=== PATIENT | male | born 1930 | race Caucasian/White ===

== ENCOUNTER 2016-08-13 18:12 | Emergency (ER) | payer OTHER ==
--- NOTE | 2016-08-13 18:27 | EDPHY ---
H & P HPI/ROS: HPI CHIEF COMPLAINT: Constipation HISTORY OF PRESENT ILLNESS: This patient is a 86-year-old male significant medical history for a subtotal neuralgia, left knee replacement, and intermittent constipation. He does take chronic opioids 1 pill per day in the morning. Thinks he takes hydrocodone per day. He presents emergency room states that he is unsure if he had a bowel movement yesterday cannot recall. Tried to have a bowel movement today was having a hard time. He took 2 bottles of milk of magnesia without any significant movement today. He tells me he has not really had a big meal today did not exercise. He denies any abdominal pain. Denies nausea, vomiting, chest pain or shortness of breath. He is unsure if he had a bowel movement yesterday he normally goes regularly. He is concerned that he may have not had a bowel movement yesterday and did not have 1 today and that he may be constipated. Upon arrival here in emergency room he has no chest pain no abdominal pain no nausea no vomiting. Past Medical History: Occipital neuralgia, left knee replacement, takes chronic opioids 1 pill per day. Past Surgical History: Left knee surgery Social History: Denies daily use of drugs alcohol tobacco products, lives independently Family History: Noncontributory ROS REVIEW OF SYSTEMS: A comprehensive 10 point review of systems is otherwise negative aside from elements mentioned in the history of present illness. Exam Constitutional appears well nontoxic, triage nursing summary reviewed, vital signs reviewed, awake/alert. Eyes normal conjunctivae and sclera, EOMI, PERRLA. HENT normal inspection, atraumatic, moist mucus membranes, no epistaxis, neck supple/ no meningismus, no raccoon eyes. Respiratory clear to auscultation bilaterally, normal breath sounds, no respiratory distress, no wheezing. Cardiovascular rate normal, regular rhythm, no murmur, no edema, distal pulses normal. Gastrointestinal abdomen is completely, there is no distention, no palpable stool mass, soft, non-tender, no rebound, no guarding, normal bowel sounds, no distension, no pulsatile mass. Genitourinary no CVA tenderness. Musculoskeletal no midline vertebral tenderness, full range of motion, no calf swelling, no tenderness of extremities, no meningismus, good pulses, neurovascularly intact. Skin pink, warm, & dry, no rash, skin atraumatic. Neurologic awake, alert and oriented x 3, AAOx3, moves all 4 extremities equally, motor intact, sensory intact, CN II-XII intact, normal cerebellar, normal vision, normal speech. Psychiatric normal mood/affect. Heme/Lymph/Immune no lymphadenopathy. Differential Diagnosis: Includes but is not limited to in a particular order, functional constipation, constipation caused by opioid use, slow transit constipation, bowel obstruction Medical Decision Making: Plan for this patient KUB. If KUB shows normal bowel gas pattern and constipation will place on MiraLax for 2 days. Lots of water per injuries. Exercise and normal meal and he should move his bowels. If he cannot recommend he holds narcotic for the next 2 days. Re-evaluation: 1908: Did re-evaluate the patient. I went over his KUB x-ray with him. He understands help with his constipation. Additionally I did go over these bone lesions needs follow-up. He has no primary care doctor. I will refer him to oncology for follow-up as well as unassigned internal medicine primary care as he has no assigned primary care doctor at this time. He understands he needs these bone lesions followed up. Does not have a history of cancer multiple myeloma, unclear significance at this time. Source: Patient - Medical/Surgical History Hx Asthma: No Hx Chronic Respiratory Disease: No Hx Diabetes: No Hx Cardiac Disease: No Hx Renal Disease: No Hx Cirrhosis: No Hx Alcoholism: No Hx HIV/AIDS: No Hx Splenectomy or Spleen Trauma: No Other PMH: left knee replacement - Social History Smoking Status: Never smoked Constitutional: Initial Vital Signs Temperature (C) 36.6 C 08/13/16 18:30 Heart Rate 114 H 08/13/16 18:30 Respiratory Rate 18 08/13/16 18:30 Blood Pressure 149/95 H 08/13/16 18:30 O2 Sat (%) 94 08/13/16 18:30 O2 Delivery Mode Room Air Allergies/Adverse Reactions: No Known Allergies Allergy (Verified 10/25/15 10:04) Home Medications: Medication Instructions Recorded Polyethylene Glycol 3350 [Miralax 17 gm PO DAILY #4 pkt 08/13/16 17 gm (*)] Medical Decision Making - Diagnostics Imaging Results: Imaging Impressions Abdomen X-Ray 08/13/16 18:33 Impression: 1. Constipation. 2. Suspect abnormal bones. Is there history of malignancy or multiple myeloma? Results discussed with Dr. Cosby. Departure - Departure Disposition: Home, Routine, Self-Care Clinical Impression: Constipation Qualifiers: Constipation type: unspecified constipation type Qualified Code(s): K59.00 - Constipation, unspecified Condition: Good Instructions: Constipation (ED) Additional Instructions: 1. Drink lots of fluids stay well-hydrated. 2. Try to carpio narcotic pain medicine for the next 2 days it can cause constipation 3. Take 2 packs MiraLax today and 2 packets tomorrow with lots of water. 4. You may add prune juice. 5. Try to stay active to move her bowels. 6. Eat a regular meal. 7. You need your bone cysts evaluated. Please follow up with the primary care doctor or oncology please call their for an appointment. Referrals: NONE *PRIMARY CARE P,. [Primary Care Provider] - As per Instructions Adriana Palma MD [Medical Doctor] - As per Instructions Marcelina Feng MD [Medical Doctor] - As per Instructions Prescriptions: Polyethylene Glycol 3350 [Miralax 17 gm (*)] 17 gm PO DAILY #4 pkt
[2016-08-13 18:38] VITALS: RESP 18; TEMP 97.9
[2016-08-13 19:12] VITALS: BP 138/78; PULSE 102; O2SAT 91
== END 2016-08-13 19:32 | disposition home or self-care (01) ==
LOC: CED 18:12
DX: K59.00 Constipation, unspecified (principal)
CPT/HCPCS: 74000-PO

== ENCOUNTER → 2016-11-09 | Outpatient (CLI) | payer OTHER, MEDICARE | LOC: CIMAGING 10:13 | PROVIDERS: ATTEND Family Medicine Geriatric Medicine | DX: R90.82 White matter disease, unspecified (principal); G31.9 Degenerative disease of nervous system, unspecified | CPT/HCPCS: 70450-PO ==

== ENCOUNTER 2016-12-31 11:30 | Emergency (ER) | payer OTHER, MEDICARE ==
[2016-12-31 11:49] VITALS: RESP 16; TEMP 97.7
[2016-12-31] MEDS ORDERED: predniSONE 20 MG TAB PO ONE (12:14)
[2016-12-31] MEDS ORDERED: KETOROLAC 30 MG/1 ML SDV IM ONE (12:15)
[2016-12-31] MEDS ORDERED: KETOROLAC 15 MG/1 ML SDV IVP ONE (12:16)
[2016-12-31 12:34] LABS: % IMMATURE GRANULYOCYTES 0.4 % (0.0-1.1); ABSOLUTE IMMATURE GRANULOCYTES 0.03 10^3/uL (0.00-0.10); ADD DIFF? NO; ADD MORPH? NO; ADD SCAN? NO; ATYPICAL LYMPHOCYTE FLAG 0 (0-99); FRAGMENT RBC FLAG 0 (0-99); HEMATOCRIT 49.5 % (40.0-51.0); HEMOGLOBIN 17.5 g/dL (13.7-17.5); LEFT SHIFT FLG 0 (0-99); LIPEMIA HEMOLYSIS FLAG 90 (0-99); MEAN CELL HEMOGLOBIN 33.1 pg (27.9-34.1); MEAN CELL HEMOGLOBIN CONCENTR. 35.4 g/dL (32.4-36.7); MEAN CELL VOLUME 93.6 fL (81.5-99.8); MEAN PLATELET VOLUME 9.9 fL (8.7-11.7); PLATELET CLUMPS FLAG 0 (0-99); PLATELET COUNT 225 10^3/uL (150-400); RED BLOOD CELL COUNT 5.29 10^6/uL (4.40-6.38); RED CELL DISTRIBUTION WIDTH 12.7 % (11.5-15.2)
[2016-12-31 12:49] LABS: ANION GAP 15 mEq/L (8-16); CARBON DIOXIDE 24 mEq/l (22-31); CHLORIDE 102 mEq/L (97-110); GLOMERULAR FILTRATION RATE > 60; GLUCOSE 96 mg/dL (70-100); POTASSIUM 4.3 mEq/L (3.5-5.2); SODIUM 141 mEq/L (134-144); URIC ACID 6.4 mg/dL (3.5-8.5)
--- NOTE | 2016-12-31 13:23 | EDPHY ---
H & P Time Seen by Provider: 12/31/16 11:44 HPI/ROS: CHIEF COMPLAINT: Finger pain HISTORY OF PRESENT ILLNESS: This is an 86-year-old gentleman who presents emergency department reporting increasing pain, redness, and swelling of the right index finger. Patient reports that the fingers have been bothering him for "quite some time "and that he thinks he has arthritis in his hands. He reports that the index finger has been red, slightly warm, and swollen for 3-4 days. Patient denies any trauma. Denies fever. REVIEW OF SYSTEMS: Aside from elements discussed in the HPI, a comprehensive 10-point review of systems was reviewed and is negative. I do have some concerns however regarding the patient's memory and his ability to provide an appropriate history. PAST MEDICAL HISTORY: Depression. Chart indicates prior history of cellulitis , diverticulitis. SOCIAL HISTORY: . Former smoker. GENERAL APPEARANCE: Pleasant, conversant, alert, oriented x3. FOCUSED EXAM OF right upper extremity: Diffuse swelling of the index finger from the MCP to the PIP joint. Tophi is present near the PIP joint, limited flexion secondary to swelling and pain. Fingers somewhat warm to the touch. No lymphangitic spread. No erythema, pain, redness on the palm of the hand. No erythema, pain, tenderness across the dorsum of the hand. Brisk capillary refill. Neurovascular exam: Good capillary refill, normal neurologic exam. Smoking Status: Former smoker Constitutional: Initial Vital Signs Temperature (C) 36.5 C 12/31/16 11:45 Heart Rate 67 12/31/16 11:45 Respiratory Rate 16 12/31/16 11:45 Blood Pressure 160/90 H 12/31/16 11:45 O2 Sat (%) 94 12/31/16 11:45 O2 Delivery Mode Room Air Allergies/Adverse Reactions: No Known Allergies Allergy (Verified 12/31/16 11:43) Home Medications: Medication Instructions Recorded Cephalexin [Keflex (RX)] 500 mg PO QID 7 Days cap 12/31/16 Escitalopram Oxalate [Lexapro] 12/31/16 predniSONE [prednisone 10mg (RX)] 40 mg PO DAILY 3 Days tab 12/31/16 Medical Decision Making - Diagnostics Imaging Results: Imaging Impressions Finger X-Ray 12/31/16 13:23 Impression: Sausage digits. Does this patient have gout or psoriasis? ED Course/Re-evaluation: I suspect the patient may be developing gouty arthritis in his hand. He does have toe 5 present on examination. 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 He is right-hand dominant. X-ray was obtained which demonstrates no acute injuries. Laboratory evaluation: Normal white count, normal chemistries including uric acid. Patient received prednisone as well as Toradol. He was referred to follow up with the primary care physician, Dr. Melton. Patient was placed on Keflex 500 mg by mouth 4 times a day to treat any underlying cellulitis. Note: I did place a call to Dr. Melton's office to discuss the diagnosis. Dr. Melton returned the call and will ensure that the patient has follow-up. Also made a attempt to reach the patient's daughter via her cell phone. There was no answer. Message was left. Differential Diagnosis: Differential diagnoses for the patient's symptom complex was considered including but not limited to gout, pseudogout, fracture, arthritis, rheumatoid arthritis, cellulitis, septic joint. - Data Points Laboratory Results: Laboratory Results 12/31/16 12:30 12/31/16 12:30 12/31/16 12/31/16 12:30 12:30 WBC 7.36 10^3/uL 10^3/uL (3.80-9.50) RBC 5.29 10^6/uL 10^6/uL (4.40-6.38) Hgb 17.5 g/dL g/dL (13.7-17.5) Hct 49.5 % % (40.0-51.0) MCV 93.6 fL fL (81.5-99.8) MCH 33.1 pg pg (27.9-34.1) MCHC 35.4 g/dL g/dL (32.4-36.7) RDW 12.7 % % (11.5-15.2) Plt Count 225 10^3/uL 10^3/uL (150-400) MPV 9.9 fL fL (8.7-11.7) Neut % (Auto) 66.2 % % (39.3-74.2) Lymph % (Auto) 18.9 % % (15.0-45.0) Becker % (Auto) 12.1 % % (4.5-13.0) Eos % (Auto) 1.9 % % (0.6-7.6) Baso % (Auto) 0.5 % % (0.3-1.7) Nucleat RBC Rel Count 0.0 % % (0.0-0.2) Absolute Neuts (auto) 4.87 10^3/uL 10^3/uL (1.70-6.50) Absolute Lymphs (auto) 1.39 10^3/uL 10^3/uL (1.00-3.00) Absolute Monos (auto) 0.89 10^3/uL H 10^3/uL (0.30-0.80) Absolute Eos (auto) 0.14 10^3/uL 10^3/uL (0.03-0.40) Absolute Basos (auto) 0.04 10^3/uL 10^3/uL (0.02-0.10) Absolute Nucleated RBC 0.00 10^3/uL 10^3/uL (0-0.01) Immature Gran % 0.4 % % (0.0-1.1) Immature Gran # 0.03 10^3/uL 10^3/uL (0.00-0.10) Sodium 141 mEq/L mEq/L (134-144) Potassium 4.3 mEq/L mEq/L (3.5-5.2) Chloride 102 mEq/L mEq/L (97-110) Carbon Dioxide 24 mEq/l mEq/l (22-31) Anion Gap 15 mEq/L mEq/L (8-16) BUN 14 mg/dL mg/dL (7-23) Creatinine 1.0 mg/dL mg/dL (0.7-1.3) Estimated GFR > 60 Glucose 96 mg/dL mg/dL (70-100) Uric Acid 6.4 mg/dL mg/dL (3.5-8.5) Calcium 10.0 mg/dL mg/dL (8.5-10.4) Medications Given: Discontinued Medications Ertapenem 1 gm/ Sodium (Chloride) 100 mls @ 200 mls/hr IV EDNOW ONE PRN Reason: Protocol Stop: 12/31/16 14:16 Last Admin: 12/31/16 14:04 Dose: 100 mls Ketorolac Tromethamine (Toradol) 15 mg IVP ONCE ONE Stop: 12/31/16 12:17 Last Admin: 12/31/16 12:44 Dose: 15 mg Prednisone (Prednisone) 40 mg PO EDNOW ONE Stop: 12/31/16 12:15 Last Admin: 12/31/16 12:45 Dose: 40 mg Departure - Departure Disposition: Home, Routine, Self-Care Clinical Impression: suspect gout, Arthritis Cellulitis Qualifiers: Site of cellulitis: extremity Site of cellulitis of extremity: finger Laterality: right Qualified Code(s): L03.011 - Cellulitis of right finger Condition: Good Instructions: Cellulitis (ED), Osteoarthritis (ED), Gout (ED) Additional Instructions: I suspect that your finger may be developing gout. Please take the prednisone as directed. In addition, take ibuprofen 400-600 mg by mouth every 8 hours for pain and for information. You have also been given a prescription for Keflex, this is an antibiotic. Please take this as directed to cover for any infection which may be present on the finger. Please follow up with Dr. Melton next week for further evaluation. Return to the emergency department or seek care urgently if your symptoms are worsening despite the above measures, especially if you have a fever, worsening swelling of the finger, increased pain, redness extending into the hand or up the arm, or other concerns. Referrals: NONE *PRIMARY CARE P,. [Primary Care Provider] - As per Instructions Makenna Melton MD [Doctor of Osteopathy] - As per Instructions Prescriptions: Cephalexin [Keflex (RX)] 500 mg PO QID 7 Days cap predniSONE [prednisone 10mg (RX)] 40 mg PO DAILY 3 Days tab
[2016-12-31] MEDS ORDERED: ERTAPENEM 1 GM in NS 100 ML IV ONE (13:47)
[2016-12-31 15:07] VITALS: BP 155/81; PULSE 58; O2SAT 91
== END 2016-12-31 14:50 | disposition home or self-care (01) ==
LOC: CED 11:30
DX: L03.011 Cellulitis of right finger (principal); M19.90 Unspecified osteoarthritis, unspecified site; Z87.891 Personal history of nicotine dependence
CPT/HCPCS: 73140; 96365; 96375; 99284; J1335; J1885; 80048-PO; 84550-PO; 85025-PO

== ENCOUNTER 2017-07-20 10:07 | Emergency (ER) | payer OTHER, MEDICARE ==
[2017-07-20 10:24] VITALS: BP 177/89
--- NOTE | 2017-07-20 10:43 | EDPHY ---
H & P Time Seen by Provider: 07/20/17 10:30 HPI/ROS: HPI Left knee swelling. 87-year-old male by private vehicle. This patient has a history of a left knee replacement. He states that this was done many years ago in [facility]. He reports that for about the last month and a half he has noticed a sensation of pressure involving the left knee and some swelling. He reports that this has persisted for at least a month. No history of trauma. He has not had a fever. He denies any significant pain. He is able to bear weight on the left knee without difficulty. No loss of sensation or weakness distally ROS: Constitutional: No fever, no chills. No weakness. Musculoskeletal: As above. Skin: No rashes. Neurological: No focal weakness or altered sensation. Past medical history: Depression, left knee replacement. Denies prescription medications. Social history: Here by himself. Nonsmoker. No alcohol. Physical Exam: General Appearance: Alert, no distress. This patient is responding to questions appropriately and in full sentences. This patient appears well- hydrated and well-nourished. Eyes: Pupils equal and round no pallor or injection. No lid edema, erythema or injection. Left knee exam: Midline anterior scar. Probable small effusion. No soft tissue erythema, ecchymosis, warmth or edema. No pain on flexion or extension of the knee. The left knee is stable to valgus and varus stress testing and anterior and posterior drawer testing. No pain on axial compression of the left knee. The left lower extremity is neurovascularly intact. Neurological: Motor sensory function is grossly intact. Cranial nerves are normal. Gait is normal. Skin: Warm and dry, no rashes. Extremities are symmetrical except noted. All joints range without pain or impingement. Psychiatric: No agitation. No depression. Database: EKG: Imaging: Left knee x-ray series: Negative for fracture, subluxation, dislocation. Hardware appears intact. Interpreted by me. Procedures: Emergency department course: Vital signs reviewed. He is moderately hypertensive. Vital signs otherwise within normal limits. Left knee x-ray to be obtained. I do not feel that arthrocentesis is indicated at this time. Septic joint unlikely. 11:00 a.m., results of knee x-ray discussed with the patient. Plan will be to have him follow up with Orthopedics, Dr. Membreno or 1 of his partners later this week for re-evaluation and further management. He is in agreement with this plan. He understands his follow-up. Return to emergency department precautions reviewed with him. All of his questions were answered. He was discharged in good condition. Differential Diagnosis: The differential diagnosis on this patient includes but is not limited to left knee prosthesis. Acute traumatic injury to left knee prosthesis, septic left knee joint unlikely. This represents a partial list of diagnoses considered. These considerations are based on history, physical exam, past history, reassessment and diagnostic testing. Smoking Status: Former smoker Constitutional: Initial Vital Signs Temperature (C) 37.0 C 07/20/17 10:21 Heart Rate 74 07/20/17 10:21 Respiratory Rate 18 07/20/17 10:21 Blood Pressure 177/89 H 07/20/17 10:21 O2 Sat (%) 93 07/20/17 10:21 O2 Delivery Mode Room Air Allergies/Adverse Reactions: No Known Allergies Allergy (Verified 07/20/17 10:20) Home Medications: Medication Instructions Recorded NK [No Known Home Meds] 07/20/17 Medical Decision Making - Diagnostics Imaging Results: Imaging Impressions Knee X-Ray 07/20/17 10:34 Impression: Postsurgical change of left total knee arthroplasty with good alignment and appearance. Mild suprapatellar joint effusion. Mild prepatellar edema. Departure - Departure Disposition: Home, Routine, Self-Care Clinical Impression: Effusion, left knee Condition: Good Instructions: Swollen Knee Joint (ED) Additional Instructions: Read and follow provided instructions. Follow-up with Dr. Membreno or 1 of his partners with the orthopedic service for re-evaluation of your left knee and any further management. You can take ibuprofen for pain as needed. Ibuprofen dosin mg every 6 hours with meals for the next 3 days only. Take only as needed for pain. Return to the emergency department for pain tear left knee, warmth, swelling or redness over the knee, fever or other serious concerns. Referrals: Ruslan Membreno MD [Medical Doctor] - As per Instructions
== END 2017-07-20 11:04 | disposition home or self-care (01) ==
LOC: CED 10:07
DX: M25.462 Effusion, left knee (principal); Z87.891 Personal history of nicotine dependence; Z96.652 Presence of left artificial knee joint
CPT/HCPCS: 73562-PO